=== PATIENT | male | born 1995 | race Caucasian/White ===

== ENCOUNTER 2018-04-01 20:23 | Emergency (ER) | payer MEDICAID ==
--- NOTE | 2018-04-01 21:07 | EDM.PDOC ---
ED HPI GENERAL MEDICAL PROBLEM - General Chief Complaint: ENT Problem Stated Complaint: TOOTH PAIN Time Seen by Provider: 04/01/18 20:55 Source of Information: Reports: Patient History Limitations: Reports: No Limitations - History of Present Illness INITIAL COMMENTS - FREE TEXT/NARRATIVE: 22 yo male with several days of progressive tooth pain. Has been using OTC products with relief for awhile, they are no longer helping him. Has not been to either his primary or a dentist since the onset of pain. No fever. Drinks a lot of soda pop. 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) (Ambesol) RIGHT LOWER JAW Pain Score (Numeric/FACES): 10 - Related Data Allergies Allergy/AdvReac Type Severity Reaction Status Date / Time No Known Allergies Allergy Verified 04/01/18 20:50 Home Meds: Home Meds NK [No Known Home Meds] 04/01/18 [History] Social & Family History - Tobacco Use Smoking Status *Q: Current Every Day Smoker Years of Tobacco use: 8 Packs/Tins Daily: 1 - Caffeine Use Caffeine Use: Reports: Soda - Recreational Drug Use Recreational Drug Use: No ED ROS ENT - Review of Systems Review Of Systems: See Below Constitutional: Reports: No Symptoms HEENT: Reports: Dental Pain Respiratory: Reports: No Symptoms Cardiovascular: Reports: No Symptoms Skin: Reports: No Symptoms Neurological: Reports: No Symptoms ED EXAM, ENT - Physical Exam Exam: See Below Exam Limited By: No Limitations General Appearance: Alert, WD/WN, No Apparent Distress Eye Exam: Bilateral Eye: Normal Inspection Ears: Normal External Exam, Normal Canal, Hearing Grossly Normal, Normal TMs Nose: Normal Inspection, Normal Mucousa, No Blood Mouth/Throat: Normal Gums, Normal Lips, Dental Abcess, Dental Pain, Dental Tenderness. No: Normal Teeth, Dental Trauma, Hoarse Voice, Lip Swelling, Throat Pain Head: Atraumatic, Normocephalic Neck: Normal Inspection, Supple, Non-Tender. No: Lymphadenopathy (R), Lymphadenopathy (L) Neurological: Alert, Oriented, CN II-XII Intact, Normal Cognition, No Motor/ Sensory Deficits Psychiatric: Normal Affect, Normal Mood Skin: Warm, Dry, Intact, Normal Color, No Rash Lymphatic: No Adenopathy Course - Vital Signs Last Recorded V/S: Last Vital Signs Temp 36.6 C 04/01/18 20:53 Pulse 80 04/01/18 20:53 Resp 15 04/01/18 20:53 BP 107/61 04/01/18 20:53 Pulse Ox 100 04/01/18 20:53 Departure - Departure Time of Disposition: 21:07 Disposition: Home, Self-Care 01 Condition: Good Clinical Impression: Dental abscess - Discharge Information *PRESCRIPTION DRUG MONITORING PROGRAM REVIEWED*: Yes *COPY OF PRESCRIPTION DRUG MONITORING REPORT IN PATIENT REGIS: No Instructions: Dental Abscess, [id number] Referrals: PCP,None [Primary Care Provider] - Additional Instructions: Take penicillin as directed until gone. Take ibuprofen 600 mg every 6 hrs with food for pain relief. Add acetaminophen 1000 mg every 6 hrs OR [place] for added pain relief. See a dentist [facility]. If you need care before a dentist can see you then follow up with your family doctor.
== END 2018-04-01 21:19 | disposition home or self-care (01) ==
LOC: JP.ED 20:23
DX: K04.7 Periapical abscess without sinus (principal); F17.210 Nicotine dependence, cigarettes, uncomplicated
CPT/HCPCS: 99283

== ENCOUNTER 2025-04-28 20:32 | Emergency (ER) | payer SELFPAY ==
[2025-04-28 21:33] LABS: APPEARANCE,URINE CLEAR (CLEAR); GLUCOSE,URINE NEGATIVE (NEGATIVE); OCCULT BLOOD,URINE MODERATE (NEGATIVE)
[2025-04-28 22:07] LABS: SQUAMOUS EPITHELIAL CELLS,UR RARE /HPF
[2025-04-28 22:08] LABS: UROTHELIAL CELLS,URINE FEW /HPF
== END 2025-04-28 22:44 | disposition home or self-care (01) ==
LOC: JP.ED 20:32
DX: N45.1 Epididymitis (principal); F17.200 Nicotine dependence, unspecified, uncomplicated
CPT/HCPCS: 76870; 81001; 93975; 99284; A9270